=== PATIENT | female | born 1985 | race Caucasian/White ===

== ENCOUNTER 2017-07-28 03:08 | Emergency (ER) | payer SELFPAY ==
[2017-07-28 03:18] VITALS: TEMP 98; O2SAT 98
--- NOTE | 2017-07-28 03:42 | ED PDOC ---
HPI: Psych/Substance Abuse Time Seen by Provider: 07/28/17 03:28 Chief Complaint (Nursing): Alcohol Ingestion Chief Complaint (Provider): etoh, under arrest History Per: Patient, Other (Police) Additional Complaint(s): 32 year old female presents in police custody for medical and psychiatric clearance prior to incarceration. Patient is acutely intoxicated upon arrival. She is arousable to tactile stimuli. Past Medical History Reviewed: Historical Data, Nursing Documentation, Vital Signs, Unable To Obtain Vital Signs: Last Vital Signs Temp 98.0 F 07/28/17 03:16 Pulse 120 H 07/28/17 03:16 Resp 16 07/28/17 03:16 BP 127/58 L 07/28/17 03:16 Pulse Ox 98 07/28/17 03:16 - Family History Family History: States: Unknown Family Hx - Allergies Allergies/Adverse Reactions: Allergies Allergy/AdvReac Type Severity Reaction Status Date / Time No Known Allergies Allergy Verified 07/28/17 03:18 Review of Systems ROS Statement: Except As Marked, All Systems Reviewed And Found Negative Psych: Positive for: Other (etoh, under arrest, needs medical and psychiatric clearance) Physical Exam - Reviewed Nursing Documentation Reviewed: Yes Vital Signs Reviewed: Yes - Physical Exam Appears: Positive for: Well, Non-toxic, No Acute Distress Skin: Negative for: Rash Eye Exam: Positive for: Normal appearance Cardiovascular/Chest: Positive for: Regular Rate, Rhythm Respiratory: Positive for: Normal Breath Sounds Neurologic/Psych: Positive for: Other (intoxicated, responds to tactile stimuli) - Laboratory Results Result Diagrams: 07/28/17 04:30 07/28/17 04:30 - ECG O2 Sat by Pulse Oximetry: 98 Pulse Ox Interpretation: Normal Medical Decision Making Medical Decision Makin32 year old intoxicated female presents for medical and psychiatric clearance. Plan: CBC CMP BAL Crisis consult Disposition - Clinical Impression Clinical Impression: Alcohol intoxication, Medical clearance for incarceration - Patient ED Disposition Is Patient to be Admitted: Transfer of Care - Disposition Disposition: Transfer of Care Disposition Time: 06:00 Condition: FAIR Forms: [facility] (Dominican) Patient Signed Over To: Pearl De La Rosa Handoff Comments: Case was signed out to Dr. De La Rosa pending sobriety, crisis consult and final disposition
[2017-07-28 04:39] LABS: BASO % 0.5 % (0.0-2.0); EOS # 0.4 K/uL (0.0-0.7); EOS % 4.4 % (0.0-4.0); HEMATOCRIT 38.7 % (34.0-47.0); LYMPH # 2.1 K/uL (1.0-4.3); LYMPH % 24.4 % (20.0-40.0); MEAN CELL VOLUME 89.3 fl (81.0-99.0); MEAN CORPUSCULAR HEMOGLOBIN 29.3 pg (27.0-31.0); MEAN CORPUSCULAR HGB CONC 32.8 g/dL (33.0-37.0); MEAN PLATELET VOLUME 7.3 fl (7.2-11.7); MONO # 0.5 K/uL (0.0-0.8); MONO % 6.4 % (0.0-10.0); NEUT # 5.5 K/uL (1.8-7.0); NEUT % 64.3 % (50.0-75.0); NRBC % 0.1 % (0.0-0.0); RED CELL DISTRIBUTION WIDTH 13.3 % (11.5-14.5); WHITE BLOOD COUNT 8.5 K/uL (4.8-10.8)
[2017-07-28 05:02] LABS: ALB/GLOB RATIO 1.3 (1.0-2.1); ALKALINE PHOSPHATASE 80 U/L (38-126); ALT/SGPT 26 U/L (9-52); AST/SGOT 32 U/L (14-36); BILIRUBIN,TOTAL 0.1 mg/dl (0.2-1.3); BLOOD UREA NITROGEN 16 mg/dl (7-17); CALCIUM 8.6 mg/dL (8.4-10.2); CARBON DIOXIDE 22 mmol/L (22-30); CHLORIDE 104 mmol/L (98-107); GFR AFRICAN-AMERICAN > 60; GLUCOSE,RANDOM 100 mg/dL (65-105); POTASSIUM 3.9 MMOL/L (3.6-5.0); SODIUM 142 mmol/l (132-148); TOTAL PROTEIN 7.4 G/DL (6.3-8.2)
[2017-07-28 05:25] LABS: ALCOHOL SERUM 304 mg/dl (0-10)
--- NOTE | 2017-07-28 06:00 | ED PDOC ---
- Laboratory Results Result Diagrams: 07/28/17 04:30 07/28/17 04:30 - ECG O2 Sat by Pulse Oximetry: 98 Medical Decision Making Medical Decision Makin Patient signed out to me from [facility] Payne pending sobriety, crisis eval, and final disposition. [id number] Patient will be signed out to Dr. Calle from me pending sobriety and crisis evaluation. Scribe Attestation: Documented by Dixie Vale acting as a scribe for Pearl De La Rosa MD. Scribe Attestation: All medical record entries made by the Scribe were at my direction and personally dictated by me. I have reviewed the chart and agree that the record accurately reflects my personal performance of the history, physical exam, medical decision making, and the department course for this patient. I have also personally directed, reviewed, and agree with the discharge instructions and disposition. Disposition - Clinical Impression Clinical Impression: Alcohol intoxication, Medical clearance for incarceration - POA Present On Arrival: None - Disposition Referrals: [facility] [Outside] Disposition: Transfer of Care Disposition Time: 07:00 Condition: GOOD Additional Instructions: Patient is medically and psychiatrically cleared for incarceration. Instructions: Alcohol Intoxication (ED) Patient Signed Over To: Yareli Calle Handoff Comments: pending crisis eval and sobriety
[2017-07-28] MEDS ORDERED: Sodium Chloride 0.9% 1,000 ML IV STA ×2 (06:46→09:53)
--- NOTE | 2017-07-28 07:07 | ED PDOC ---
- Laboratory Results Result Diagrams: 07/28/17 04:30 07/28/17 04:30 - ECG O2 Sat by Pulse Oximetry: 98 Medical Decision Making Medical Decision Makin Patient signed out to me from Pearl De La Rosa MD pending sobriety and crisis eval. [id number] Patient is alert and awake. Ambulatory with steady gait. Scribe Attestation: Documented by Dixie Vale acting as a scribe for Yareli Calle MD. Scribe Attestation: All medical record entries made by the Scribe were at my direction and personally dictated by me. I have reviewed the chart and agree that the record accurately reflects my personal performance of the history, physical exam, medical decision making, and the department course for this patient. I have also personally directed, reviewed, and agree with the discharge instructions and disposition. Disposition Doctor Will See Patient In The: Office Counseled Patient/Family Regarding: Studies Performed, Diagnosis, Need For Followup - Clinical Impression Clinical Impression: Alcohol intoxication, Medical clearance for incarceration - POA Present On Arrival: None - Disposition Referrals: [facility] [Outside] Disposition: Routine/Home Disposition Time: 11:43 Condition: GOOD Additional Instructions: Patient is medically and psychiatrically cleared for incarceration. Instructions: Alcohol Intoxication (ED)
[2017-07-28 12:05] VITALS: BP 126/72; PULSE 107; RESP 18
== END 2017-07-28 12:11 | disposition home or self-care (01) ==
LOC: H.ER 03:08
DX: F10.129 Alcohol abuse with intoxication, unspecified (principal)
CPT/HCPCS: 80053; 84703; 85025; 96372; 99284; G0480; J1630; J7040